=== PATIENT | female | born 1970 | race Caucasian/White ===

== ENCOUNTER 2020-05-14 13:59 | Inpatient (IN) | payer OTHER ==
[~2020-05-14] VITALS: Ht 154.9 cm; Wt 74.8 kg
--- NOTE | ~2020-05-14 | OP ---
PATIENT NAME: KARO CHILDERS MEDICAL RECORD: [id number] :66 LOCATION:[id number] ADMISSION DATE:05/15/20 SURGEON: TRISTIN MC MD DATE OF OPERATION: 05/16/2020 PREOPERATIVE DIAGNOSES: 1. Ventral hernia. 2. Abdominal pain. POSTOPERATIVE DIAGNOSES: 1. Ventral hernia. 2. Abdominal pain. PROCEDURE: Ventral hernia repair. SURGEON: Tristin Mc MD REPORT OF PROCEDURE: The patient's abdomen was prepped and draped in sterile fashion. A longitudinal incision was made in the midline above the umbilicus and electrocautery was used to dissect through the subcutaneous tissue. We encountered the hernia sac, we were able to get around this down to its base. The hernia sac was opened up and released and we could see the hernia contents were omental fat. We were able to free up this fat and push it back into the abdominal cavity. This left a 1 cm wide defect. The defect was wider than it was long. Dipping into this defect was the catheter from the patient's gastric band. We made sure to avoid any injury to this catheter. The tissues were then reapproximated transversely using interrupted 0 Prolenes times 3. This reapproximated the fascia very easily without any tension. At this point, we irrigated out the wound and then closed the subcutaneous tissues with interrupted 3-0 Vicryl. A 10 mL of 0.25% Marcaine with epinephrine was infused into the surrounding tissues and the skin was closed with running subcutaneous 5-0 Monocryl. COMPLICATIONS: None. CONDITION: Stable. ANESTHESIA: General endotracheal and local. BLOOD LOSS: Minimal. TRANSINT:[id number] Voice Confirmation ID: [id number] DOCUMENT ID: [id number] TRISTIN MC MD CC: [id number] DICTATION DATE: 05/16/20 0852 [employer] REPRESENTATIVE: 05/16/20 1321 ADM IN [place] [id number] [place] [address]
--- NOTE | 2020-05-14 14:56 | NUR ---
RECEIVED TO ROOM #[id number] VIA . NO ACUTE DISTRESS NOTED. DENIES PAIN AT THIS TIME. A&OX4. VS STABLE: TEMP: 97.3 SPO2: 99% (ROOM AIR) HR: 87 BP: 124/88
[2020-05-14] MEDS ORDERED: XANAX1 MG (15:23)
[2020-05-14] MEDS ORDERED: STERAPRED DS 1010 MG (15:23)
[2020-05-14] MEDS ORDERED: MUPIROCIN22 GM (15:25)
[2020-05-14] MEDS ORDERED: ATARAX 25 MG TA25 MG (15:25)
[2020-05-14] MEDS ORDERED: CELEXA10 MG (15:29)
[2020-05-14 15:38] LABS: BASOPHILS 0.3 % (0-2); HEMATOCRIT 47.6 % (36.0-48.0); HEMOGLOBIN 15.2 g/dL (12-16); IMMATURE GRANULOCYTES 0.3 % (0-5); LYMPHOCYTES 25.6 % (15-50); MCH 28.6 pg (26.0-34.0); MCHC 31.9 g/dL (31.0-37.0); MCV 89.6 fL (80.0-100.0); MEAN PLATELET VOLUME 9.2 fL (7.4-10.4); MONOCYTES 9.8 % (2-11); PLATELET COUNT 215 10x3/uL (130-400); RBC 5.31 10x6/uL (4.00-5.40); RDW 15.8 % (11.5-14.5); WBC 6.6 10x3/uL (4.8-10.8)
[2020-05-14 16:08] LABS: ALBUMIN 3.4 g/dL (3.4-5.0); ALKALINE PHOSPHATASE 137 U/L (30-120); ALT (SGPT) 98 U/L (10-68); AMYLASE - SERUM 29 U/L (25-115); BILIRUBIN - TOTAL 0.15 mg/dL (0.2-1.3); CALC OSMOLALITY 271 mosm/kg (275-300); CALCIUM 9.1 mg/dL (8.5-10.1); CARBON DIOXIDE 25.7 mmol/L (21.0-32.0); CHLORIDE - SERUM 102 mmol/L (98-107); CREATININE - SERUM 0.8 mg/dL (0.6-1.3); GLUCOSE 102 mg/dL (74-106); LIPASE 121 U/L (73-393); PROTEIN - SERUM 7.8 g/dL (6.4-8.2); SODIUM 137 mmol/L (136-145); UREA NITROGEN 8 mg/dL (7-18); eGFR NON AFRICAN AMERICAN 80 mL/min (90-120)
[2020-05-14 16:27] VITALS: BMI 31.2
[2020-05-14 17:00] VITALS: BP 182/110
[2020-05-14 18:21] VITALS: BP 139/83
--- NOTE | 2020-05-14 19:00 | NUR ---
ASSUMED CARE OF PATIENT. PATIENT IS ALERT AND ORIENTED WITH AT BEDSIDE. ASSESSMENT PERFORMED. COMPLAINS OF INTERMITTENT ABDOMINAL PAIN BUT DENIES PAIN MEDICATION AT THIS TIME. IV IS PATENT AND INFUSING PER ORDER. CALL LIGHT IS CLOSE. INSTRUCTED PATIENT ON NEED OF URINE SAMPLE. PATIENT VERBALIZES UNDERSTANDING. CALL LIGHT REMAINS CLOSE. CPOC.
[2020-05-14 20:00] VITALS: BP 129/75
[2020-05-15] VITALS: BP 118/62
--- NOTE | 2020-05-15 02:46 | NUR ---
RESTING WITH NO SIGNS OR SYMPTOMS OF DISTRESS AT THIS TIME. REMAINS AT BEDSIDE. CPOC.
[2020-05-15 06:59] LABS: BASOPHILS 0.3 % (0-2); EOSINOPHILS 3.5 % (0-7); HEMATOCRIT 43.4 % (36.0-48.0); HEMOGLOBIN 13.6 g/dL (12-16); IMMATURE GRANULOCYTES 0.2 % (0-5); MCH 28.3 pg (26.0-34.0); MCHC 31.3 g/dL (31.0-37.0); MCV 90.2 fL (80.0-100.0); MEAN PLATELET VOLUME 9.2 fL (7.4-10.4); MONOCYTES 11.3 % (2-11); NEUTROPHILS 40.7 % (40-80); PLATELET COUNT 225 10x3/uL (130-400); RBC 4.81 10x6/uL (4.00-5.40); RDW 16.3 % (11.5-14.5); WBC 6.5 10x3/uL (4.8-10.8)
[2020-05-15 07:33] LABS: ALKALINE PHOSPHATASE 128 U/L (30-120); ALT (SGPT) 100 U/L (10-68); BILIRUBIN - TOTAL 0.09 mg/dL (0.2-1.3); CALC OSMOLALITY 276 mosm/kg (275-300); CALCIUM 7.8 mg/dL (8.5-10.1); CARBON DIOXIDE 23.9 mmol/L (21.0-32.0); CHLORIDE - SERUM 108 mmol/L (98-107); CREATININE - SERUM 0.7 mg/dL (0.6-1.3); GLUCOSE 92 mg/dL (74-106); MAGNESIUM - SERUM 1.9 mg/dL (1.8-2.4); POTASSIUM - SERUM 4.1 mmol/L (3.5-5.1); SODIUM 140 mmol/L (136-145); UREA NITROGEN 7 mg/dL (7-18); eGFR NON AFRICAN AMERICAN > 90 mL/min (90-120)
[2020-05-15 07:37] LABS: ALBUMIN 2.5 g/dL (3.4-5.0); PROTEIN - SERUM 5.5 g/dL (6.4-8.2)
[2020-05-15 09:48] VITALS: BP 112/61
[2020-05-15 10:33] VITALS: Ht 154.9 cm; Wt 74.8 kg
[2020-05-15 12:00] VITALS: BP 120/69
[2020-05-15 15:44] LABS: BILIRUBIN NEGATIVE (NEGATIVE); KETONE NEGATIVE (NEGATIVE); NITRITE NEGATIVE (NEGATIVE); UROBILINOGEN NORMAL (NORMAL)
[2020-05-15 15:46] LABS: BACTERIA FEW /HPF (NONE SEEN); EPITHELIAL CELLS 0-5 /hpf (0-5); WHITE CELLS - URINE 0-5 /hpf (0-5)
[2020-05-15 17:14] VITALS: BP 136/75
--- NOTE | 2020-05-15 19:10 | NUR ---
PT SEEN AND SEVERAL NEEDS SEEN TO PT REQUESTS THAT HER IV BE SALINE LOCKED FOR A WHILE PT IS ALERT AND OX4 WITH NO SIGN OF DEHYDRATION DRINKING COPIOUS FLUIDS SO I DID BED LOW AND LOCKED AND CALL LIGHT IS IN REACH
[2020-05-15 20:00] VITALS: BP 133/77
--- NOTE | 2020-05-15 20:06 | NUR ---
0700 BEDSDE REPORT RECEIVED VOICES NO C/O AT THIS TIME ASSESSMENT COMPLETE
--- NOTE | 2020-05-15 20:07 | NUR ---
1500 PT TOOK HR OWN HME MEDS THEN REPORTED THIS TO STAFF SHE HAD CALLED [facility] . ADE CALLED AND REPORTED THAT SHE COULD HAVE THEM PT REPORTED TAKING CELEXA 40MG PO AND XANAX 0.25. SHE SAID SHE NOT DO THIS AGAIN
[2020-05-16] VITALS: BP 97/58
[2020-05-16 04:00] VITALS: BP 107/56
[2020-05-16 06:33] LABS: BASOPHILS 0.3 % (0-2); EOSINOPHILS 2.2 % (0-7); HEMATOCRIT 40.8 % (36.0-48.0); IMMATURE GRANULOCYTES 0.1 % (0-5); LYMPHOCYTES 47.7 % (15-50); MCH 28.6 pg (26.0-34.0); MCHC 31.9 g/dL (31.0-37.0); MCV 89.7 fL (80.0-100.0); MEAN PLATELET VOLUME 9.3 fL (7.4-10.4); MONOCYTES 8.4 % (2-11); NEUTROPHILS 41.3 % (40-80); PLATELET COUNT 223 10x3/uL (130-400); RBC 4.55 10x6/uL (4.00-5.40); RDW 15.9 % (11.5-14.5); WBC 7.7 10x3/uL (4.8-10.8)
[2020-05-16 06:49] LABS: ALBUMIN 2.5 g/dL (3.4-5.0); ALKALINE PHOSPHATASE 157 U/L (30-120); ALT (SGPT) 95 U/L (10-68); BILIRUBIN - TOTAL 0.06 mg/dL (0.2-1.3); CALC OSMOLALITY 276 mosm/kg (275-300); CALCIUM 8.1 mg/dL (8.5-10.1); CARBON DIOXIDE 26.2 mmol/L (21.0-32.0); CHLORIDE - SERUM 107 mmol/L (98-107); CREATININE - SERUM 0.8 mg/dL (0.6-1.3); GLUCOSE 104 mg/dL (74-106); MAGNESIUM - SERUM 1.9 mg/dL (1.8-2.4); POTASSIUM - SERUM 3.9 mmol/L (3.5-5.1); PROTEIN - SERUM 5.9 g/dL (6.4-8.2); SODIUM 140 mmol/L (136-145); UREA NITROGEN 7 mg/dL (7-18); eGFR NON AFRICAN AMERICAN 80 mL/min (90-120)
--- NOTE | 2020-05-16 07:52 | NUR ---
PATIENT TAKEN TO SURGERY AND STABLE. ALERT AND ORIENTED AND VERBALIZED UNDERSTANDING OF PROCEDURE.
[2020-05-16] MEDS ORDERED: HYDROCODON-ACE1 EA10 PO (08:55)
--- NOTE | 2020-05-16 08:59 | NUR ---
SMALL AMOUNT OF RED BLOOD NOTED WHEN MOVING PATIENT AFTER PROCEDURE ON BACK SIDE, ASK PATIENT IF ON HER PERIOD AND NODDED YES, MIGUELITO.
[2020-05-16 09:41] VITALS: BP 125/72
--- NOTE | 2020-05-16 11:00 | NUR ---
PATIENT RETURNED FROM SURGERY ALERT AND ORIENTED X4. ABDOMINAL DRESSING INTACT WITH BOWEL SOUNDS HYPOACTIVE. UP ADLIB ;WITH RESTRICTIONS NOTED. FAMILY PRESENT AND ENCOURAGED TO USE CALL LIGHT FOR ASSIST.
[2020-05-16] MEDS ORDERED: NICODERM CQ1 EAC3 TOPICAL (14:28)
--- NOTE | 2020-05-16 15:08 | NUR ---
IV DISCONTINUED AND VERBALIZED UNDERSTANDING OF DISCHARGE INSTRUCTIONS. STATES HAD VOIDED AND HAD A BOWEL MOVEMENT. STABLE AT TIME OF DISCHARGE.
== END 2020-05-16 15:15 | disposition home or self-care (01) | DRG 355 ==
LOC: D.MS 13:59 → OBSVTIME 17:18 → D.MS 05-15 16:19
PROVIDERS: Family Medicine; Surgery; ADMIT Family Medicine; ATTEND Family Medicine
PROC: 0WQF0ZZ Repair Abdominal Wall, Open Approach (ICD-10-PCS; principal; 2020-05-16 08:45)
DX: K43.9 Ventral hernia without obstruction or gangrene (principal); Z98.84 Bariatric surgery status; K21.9 Gastro-esophageal reflux disease without esophagitis; F41.8 Other specified anxiety disorders